=== PATIENT | female | born 2000 | race Caucasian/White ===

== ENCOUNTER 2024-12-15 10:54 | Outpatient (CLI) | payer OTHER, SELFPAY ==
--- OUTSIDE RECORDS SUMMARY | 2024-12-15 10:58 | XMS_ITS | Clinical Summary ---
Author Organization [facility] Address [address] [place] [address] Phone Care Team Providers Care Doper Operator Name Role Phone Unavailable Primary Care Provider Unavailabl e Allergies No known active allergies Medications SPRINTEC, 28, 0.25-35 mg-mcg Oral Tablet 1 Active FEROSUL 325 mg (65 mg iron) Oral Tablet Take 65 mg by mouth daily. 1 Active cyanocobalamin (VITAMIN B-12) 1,000 mcg Oral Tablet Take 1,000 mcg by mouth daily. Active desloratadine-ps eudoephedrine (CLARINEX-D 12 HOUR) 2.5-120 mg Oral Tab, Multiphasic Release 12 hrIndications:[place] sinusitis, recurrence not specified, unspecified location Take 1 Tablet by mouth 2 times daily. 20 Tablet 1 Active Additional Information Patient not taking.Reason: Other, Reported on 07/29/2021 Active Problems Patient Care Coordination No te Formatting of this note migh t be different from the original. PT's PCP: Magdalene Ojeda A.P.R.N. [address] [facility] [address], [place] [address] EM Health Problem Noted Date Diagnosed Date Vitamin B12 deficiency 06/17/2021 Assessment & Plan (06/17/2021 4:39 PM EST): Will measure B12 vitamin Iron deficiency anemia 12/16/2020 Assessment & Plan (06/17/2021 4:39 PM EST): Will reassess Assessment & Plan (12/16/2020 12:28 PM EDT): The patient was found to have microcytic anemia. She has been on iron supplements. She does not have history of persistent heavy menstrual cycle. We will reassess CBC today. The patient was advised to get established with primary care physician to follow-up on that issue. She was provided with a referral. 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 We will obtain the thyroid function test today. The patient is to have a follow-up thyroid ultrasound in 6 months to assure the anatomical stability. Assessment & Plan (12/16/2020 12:27 PM EDT): The patient was found to have nodule goiter. The result of thyroid ultrasound is not available at the time of the consultation. Physical exam reveals diffuse goiter with more prominent left lobe enlargement. There was no obvious nodule detected on physical exam. The patient is euthyroid clinically and biochemically. The nature of her condition as well as the results of work-up were discussed with the patient at length. We will obtain the thyroid ultrasound report and decide on the need for additional intervention. Surgical History Surgery Date Site/Laterality Comments WISDOM TOOTH EXTRACTION Medical History Medical History Date Comments Anemia Asthma Family History Medical History Relation Name Comments Diabetes Father Anxiety Disorder Mother Depression Mother Relation Name Status Comments Father Mother Social History Tobacco Use Types Packs/Day Years Used Date Smoking Tobacco: Every Day Smokeless Tobacco: Never Comments:vape Alcohol Use Standard Drinks/Week Comments Never 0 (1 standard drink = 0.6 oz pur e alcohol) AUDIT-C Answer Date Recorded Q1: How often do you have a drink containing alc ohol? Never 12/16/2020 Average Number of Drinks Not on file 021 Frequency of Binge Drinking Not on file 11/19 Comments No Sex and Gender Information Value Date Recorded Sex Assigned at Not on file Legal Sex Female 9:42 AM EDT Gender Identity Not on file Sexual Orientation Not on file Obstetrics History Last Filed Vital Signs Vital Sign Reading Time Taken Comments Blood Pressure 122/78 07/29/2021 7:55 PM EDT Pulse 103 07/29/2021 7:55 PM EDT Temperature 37.2 C (98.9 F) 07/29/2021 7:55 PM EDT Respiratory Rate 18 07/29/2021 7:55 PM EDT Oxygen Saturation 99% 07/29/2021 7:55 PM EDT Inhaled Oxygen Concentration - - Weight 86.3 kg (190 lb 3.2 oz) 07/29/2021 7:55 P M EDT Height 165.1 cm (5' 5 ) 07/29/2021 7:55 PM EDT Body Mass Index 31.65 07/29/2021 7:55 PM EDT Plan of Treatment Health Maintenance Due Date Last Done Comments Annual Wellness Exam 2005 Meningococcal B Vaccine (1 of 2 - Standard) 2018 Cervical Cancer Screening 08/19/2023 Pap Smear 08/19/2023 DTaP/TDaP/Td (7 - Td or Tdap) 11/29/2023 11/28/2013, 11/10/2006, 11/10/2006, Additional history exists COVID-19 Vaccine ( season) 2023 Influenza Vaccine (#1) 2024 Hepatitis B Vaccine Completed 09/28/2003, 09/28/2003, 01/23/2003, Additional history exists HPV Completed 05/28/2015, 11/28/2013 Pneumococcal Vaccine 0-49 Aged Out No longer eligible based on patient's age to complete this topic Insurance [facility] [place] [facility] [place]
--- OUTSIDE RECORDS SUMMARY | 2024-12-15 10:58 | XMS_ITS | Clinical Summary ---
Author Organization [facility] Address [address] [place] [address] Care Team Providers Care Vocational Psychologist Name Role Phone Warren Lozano MD Primary Care Provider [phone] Allergies No known active allergies Medications No known medications Active Problems Problem Noted Date Diagnosed Date Asthma 03/06/2022 Assessment & Plan (03/06/2022 8:15 AM EST): Stable no medications PTSD (post-traumatic stress disorder) 03/06/2022 Assessment & Plan (03/06/2022 8:15 AM EST): - Chronic stable no longer in therapy does not desire medication at this time THONY (generalized anxiety disorder) 03/06/2022 Assessment & Plan (03/06/2022 8:15 AM EST): - Chronic stable no longer in therapy does not desire medication at this time Iron deficiency anemia 03/06/2022 Assessment & Plan (03/06/2022 8:15 AM EST): Last CBC within normal limits and will recheck today Thyroid nodule 03/06/2022 Goiter 03/06/2022 Assessment & Plan (03/06/2022 8:14 AM EST): - TPO antibody high at the beginning of the year -TSH normal -Repeat thyroid ultrasound ordered per recommendation of previous private security guard -Refer to endocrine Family History Medical History Relation Name Comments COPD Maternal Grandmother Anxiety disorder Mother Cancer Mother cervical cancer Depression Mother Relation Name Status Comments Brother 1 Alive Brother 2 Alive Father Alive Maternal Grandfather Maternal Grandmother Alive Mother Alive Sister Alive Social History Tobacco Use Types Packs/Day Years Used Date Smoking Tobacco: Never Passive Smoke Exposure: Yes Smokeless Tobacco: Never Tobacco Cessation:Counseling Given: Not Answered Alcohol Use Standard Drinks/Week Comments Yes 0 (1 standard drink = 0.6 oz pur e alcohol) PHQ-2 Answer Date Recorded Retired PHQ-9: Brief Depression Severity Measure Score 0 03/06/2022 Abuse Screen Answer Date Recorded Unsafe at Home or Work/School Not on file Feels Threatened by Someone? Not on file 03/2023 Does Anyone Keep You from Co ntacting Others or Doint Things Outside the Home? Not on file 01/28/2023 Physical Sign of Abuse Present Not on file 1 Housing Stability Answer Date Recorded Current Living Arrangements Not on file 01/17 Potentially Unsafe Housing Conditions Not on abelino e 01/28/2023 Family and Community Support Answer Serafin e Recorded Help with Day-to-Day Activities Not on file 01/28/2023 Lonely or Isolated Not on file 01/28/2023 Employment Answer Date Recorded Do you want help finding or keeping work or a shahram b? Not on file 01/28/2023 Disabilities Answer Date Recorded Concentrating, Remembering, or Making Decisions Difficulty Not on file 01/28/2023 Doing Errands Independently Difficulty Not on fi le 01/28/2023 Education Answer Date Recorded Help with school or training? Not on file Preferred Language Not on file 01/28/2023 Comments No Sex and Gender Information Value Date Recorded Sex Assigned at Not on file Legal Sex Female 10:06 PM EST Gender Identity Not on file Sexual Orientation Not on file Last Filed Vital Signs Vital Sign Reading Time Taken Comments Blood Pressure 100/70 03/06/2022 7:33 AM EST Pulse 86 03/06/2022 7:33 AM EST Temperature 36.9 C (98.4 F) 03/06/2022 7:33 AM EST Respiratory Rate 16 03/06/2022 7:33 AM EST Oxygen Saturation 98% 03/06/2022 7:33 AM EST Inhaled Oxygen Concentration - - Weight 86.2 kg (190 lb) 03/06/2022 7:33 AM EST Height 165.1 cm (5' 5 ) 03/06/2022 7:33 AM EST Body Mass Index 31.62 03/06/2022 7:33 AM EST Plan of Treatment Health Maintenance Due Date Last Done Comments Annual Gynecologic Pelvic an d Breast Exam 2002 MENINGOCOCCAL B VACCINE (1 o f 2 - Standard) 2018 ANNUAL PHYSICAL 01/22/2021 Pneumococcal Vaccine 0-49 (1 of 2 - PCV) 2021 TDAP/TD VACCINES (2 - Td or Tdap) 11/29/2023 11/28/2013 COVID-19 Vaccine (1 - 2023-2 5 season) 2023 INFLUENZA VACCINE 01/17/2025 MENINGOCOCCAL VACCINE Aged Out 11/28/2013 No mario carla eligible based on patient's age to complete this topic HPV VACCINES Completed 05/28/2015, 11/28/2013 HEPATITIS C SCREENING Completed 03/06/2022 Procedures Procedure Name Priority Date/Time Associated Diagnosis Comments HEPATITIS C ANTIBODY Routine 03/06/2022 8:32 AM EST Screening examination for STD (sexually transmitted disease) from Last 3 Months or Most Recently Relevant to Health Maintenance Results * Hepatitis C Antibody (03/06/2022 8:32 AM EST) Hepatitis C Ab Non-Reacti ve Non-Reacti ve 03/06/2022 7:44 PM EST [facility] Blood Venipuncture / Unknown 03/06/2022 8:32 AM EST 03/06/2022 8:32 AM EST Narrative [facility] - 03/06/2022 7:44 PM EST Results may be falsely decreased if patient taking Biotin. us Warren Lozano MD LAB BLOOD ORDERABLES Final Resu lt [facility]
[address] [place] [address], from Last 3 Months or Most Recently Relevant to Health Maintenance Insurance [employer] [facility] Care Teams Vocational Psychologist Relationship Specialty Start Date End Date Warren Lozano MD [address] [place] [id number] PCP - General Family Medicine 03/06/22
[2024-12-15 12:43] LABS: Hepatitis C Ab Qual. W/ RFX NEGATIVE (Negative)
[2024-12-16 08:32] LABS: Hepatitis B Surface Antigen Negative (Negative)
== END 2024-12-15 23:59 | disposition home or self-care (01) ==
LOC: LAB 10:57
PROVIDERS: Visit Provider Obstetrics & Gynecology
DX: Z11.3 Encounter for screening for infections with a predominantly sexual mode of transmission (principal)
CPT/HCPCS: 36415; 86803; 87340; 87389